=== PATIENT | female | born 1950 | race Caucasian/White ===

== ENCOUNTER → 2019-06-19 | Outpatient (CLI) | payer MEDICARE, OTHER ==
[2019-06-19 12:07] LABS: African American GFR (CKD) >90 (>60 ml/min/1.73 sqM); Blood Urea Nitrogen 18 mg/dL (7-17); Non-African American GFR(CKD) >90 (>60 ml/min/1.73 sqM)
--- NOTE | 2019-06-19 12:44 | CT ---
EXAMINATION TYPE: CT angio chest DATE OF EXAM: 06/19/2019 COMPARISON: Chest x-ray August 22, 2013 HISTORY: Dyspnea. CT DLP: 290 mGycm. Automated Exposure Control for Dose Reduction was Utilized. CONTRAST: CTA scan of the thorax is performed with IV Contrast, patient injected with 100 mL of Isovue 370, pul monary embolism protocol. MIP Images are created on CT scanner and reviewed. FINDINGS: LUNGS: There are small bilateral pleural fluid collections which do not completely layer dependently. There is additional fluid extending into the right lung minor fissure. There is bilateral moderate t o advanced emphysematous change most prominent involving the upper lobes. There is moderate bibasilar linear scarring and/or atelectasis. There is severe left greater than right biapical pleural/parench ymal scarring with anterior left apical honeycombing and volume loss. Residual cavitary lesion at thi s level is present. There is redemonstration of large calcified right upper lobe nodule or granuloma measuring 1.5 cm on axial image 33. Multiple additional calcifications or calcified nodules throughou t bilateral upper lungs remains present. There are calcified pleural plaques are present bilaterally. There are additional areas of pleural thickening bilaterally. No pneumothorax seen bilaterally. Left upper lobe medial bronchiectasis is present. MEDIASTINUM: There is satisfactory enhancement of the pulmonary artery and its branches, there is no CT evidence for pulmonary embolism. There are no greater than 1 cm hilar or mediastinal lymph nodes. No significant pericardial effusion is seen. Cardiomegaly is present. Enlarged bilateral pulmonary arteries is seen, CT findings suggesting underlying pulmonary hypertension. Ascending aorta measures up to 3.7 cm diameter coronal image 21. Thyroid gland is heterogeneous and upper limits of normal in size. OTHER: Patient has virtually no fat making evaluation suboptimal. There is the dextroconvex scoliosis centered mid thoracic spine. There is mild height loss involving the L1 vertebra. There is loss of n ormal thoracic curvature and sagittal images. IMPRESSION: 1. No CT evidence for acute pulmonary embolism. 2. Cardiomegaly with underlying pulmonary artery hypertension. Moderate to advanced underlying emphys ematous change with extensive chronic changes as detailed above. Possible prior asbestos exposure. Velazquez spected old granulomatous disease. Possible prior silicosis. Small bilateral pleural effusion or flui d collections which do not completely layer dependently. Left apical chronic scarring and cavitary le louise. Correlation with old outside CT would be beneficial.
== END | disposition home or self-care (01) ==
LOC: RADCTMAIN 11:34
PROVIDERS: ATTEND Family Medicine
DX: J43.9 Emphysema, unspecified (principal); I27.21 Secondary pulmonary arterial hypertension; J98.4 Other disorders of lung; R91.1 Solitary pulmonary nodule; I51.7 Cardiomegaly
CPT/HCPCS: 82565; 84520; 71275; 36415; Q9967

== ENCOUNTER 2023-12-23 16:40 | Inpatient (IN) | payer MEDICARE, OTHER ==
[2023-12-23 17:23] LABS: Glucose,Whole Blood 136 mg/dL (70-110)
[2023-12-23] MEDS: SODIUM CHLORIDE 0.9% 500 ML 500 ML IV STA (17:48)
[2023-12-23] MEDS: hydrALAZINE HCL 20 MG/ML 1 ML VIAL IVP STA (17:49)
[2023-12-23 18:01] LABS: Appearance,Urine Clear (Clear); Bilirubin,Urine Negative (Negative); Blood,Urine Negative (Negative); Color,Urine Colorless; Glucose,Urine (UA) 4+ (Negative); Ketones,Urine Negative (Negative); Leukocyte Esterase,Urine Negative (Negative); Nitrite,Urine Negative (Negative); PH, Urine 7.5 (5.0-8.0); Protein,Urine Trace (Negative); Specific Gravity,Urine 1.016 (1.001-1.035); Urobilinogen,Urine <2.0 mg/dL (<2.0)
[2023-12-23 18:10] LABS: Basophils # (A) 0.1 k/uL (0-0.2); Basophils % (A) 1 %; Eosinophils # (A) 0.1 k/uL (0-0.7); Eosinophils % (A) 1 %; HCT 46.1 % (34.0-46.0); Lymphocytes # (A) 1.4 k/uL (1.0-4.8); Lymphocytes % (A) 16 %; MCH 31.4 pg (25.0-35.0); MCHC 32.6 g/dL (31.0-37.0); MCV 96.3 fL (80.0-100.0); Mean Platelet Volume 8.4; Monocytes # (A) 0.8 k/uL (0-1.0); Monocytes % (A) 9 %; Neutrophils # (A) 6.4 k/uL (1.3-7.7); Neutrophils % (A) 71 %; Platelet Count 199 k/uL (150-450); RBC 4.78 m/uL (3.80-5.40)
[2023-12-23] MEDS: IPRATROPIUM-ALBUTEROL 3 ML NEB INHALATION STA (18:12)
--- NOTE | 2023-12-23 18:12 | ED ---
General Adult HPI - General Chief complaint: Recheck/Abnormal Lab/Rx Stated complaint: high blood pressure and blood sugar Time Seen by Provider: 12/23/23 16:55 Source: patient, RN notes reviewed, old records reviewed Mode of arrival: ambulatory Limitations: no limitations - History of Present Illness Initial comments: Patient is a 73-year-old female who presents emergency department complaining of high blood pressure, cough, elevated blood sugars. Patient is overall a poor historian. Says her blood sugars have been ranging anywhere from low 100s to mid 200s. Currently is 136 upon arrival. Blood pressures have been high for the last week with no symptoms. Has blood pressure levels with systolics in the 200s. Denies any change in recent medications but also is a poor historian regarding which medication she takes. Is a chronic smoker as well and is concerned she may have pneumonia. Follows up with Dr. Morales. States she has been compliant with all blood pressure medications. Presents for further evaluation at this time. - Related Data Home Medications Medication Instructions Recorded Confirmed Atorvastatin [Lipitor] 40 mg PO HS 12/23/23 12/23/23 Budesonide/Formoterol Fumarate 2 puff INHALATION RT-BID 12/23/23 12/23/23 [Symbicort 160-4.5 Mcg Inhaler] Dapagliflozin Propanediol [Farxiga] 5 mg PO DAILY 12/23/23 12/23/23 Empagliflozin [Jardiance] 10 mg PO DAILY 12/23/23 12/23/23 Escitalopram [Lexapro] 5 mg PO DAILY 12/23/23 12/23/23 Furosemide [Lasix] 40 mg PO BID 12/23/23 12/23/23 Gabapentin [Neurontin] 100 mg PO BID 12/23/23 12/23/23 INSULIN LISPRO (humaLOG) [humaLOG] 10 units SQ AC-TID PRN 12/23/23 12/23/23 Insulin Glargine [Lantus Vial] 20 unit SQ DAILY 12/23/23 12/23/23 Losartan [Cozaar] 50 mg PO DAILY 12/23/23 12/23/23 Midodrine [ProAmatine] 5 mg PO TID 12/23/23 12/23/23 Ondansetron [Zofran] 4 mg PO Q8HR PRN 12/23/23 12/23/23 Pantoprazole [Protonix] 40 mg PO DAILY 12/23/23 12/23/23 Spironolactone [Aldactone] 50 mg PO DAILY 12/23/23 12/23/23 carvediloL [Coreg] 6.25 mg PO BID 12/23/23 12/23/23 hydrALAZINE HCL [Apresoline] 25 mg PO BID 12/23/23 12/23/23 traZODone HCL [Desyrel] 50 mg PO HS 12/23/23 12/23/23 Allergies Allergy/AdvReac Type Severity Reaction Status Date / Time No Known Allergies Allergy Verified 12/23/23 19:27 Review of Systems ROS Statement: Those systems with pertinent positive or pertinent negative responses have been documented in the HPI. Review of Systems: CONST: Denies fever EYES: Denies blurry vision ENT: Denies nasal congestion C/V: Denies Chest pain RESP: Denies shortness of breath GI: Denies abdominal pain : Denies dysuria SKIN: Denies rash. MSK: Denies joint pain. NEURO: Denies headache ROS Other: All systems not noted in ROS Statement are negative. Past Medical History Past Medical History: Diabetes Mellitus, Hypertension History of Any Multi-Drug Resistant Organisms: None Reported Past Surgical History: No Surgical Hx Reported Past Psychological History: No Psychological Hx Reported Smoking Status: Current every day smoker Past Alcohol Use History: None Reported Past Drug Use History: None Reported General Exam - General Exam Comments Initial Comments: General: Appears in no acute distress. HEAD: Normal with no signs of head trauma. EYES: PERRLA, EOMI, conjunctiva normal, no discharge. ENT: Hearing grossly intact, normal oropharynx. RESPIRATORY: Clear breath sounds bilaterally. Mild end expiratory wheezing. No respiratory distress. C/V: Regular rate and rhythm. S1 and S2 auscultated, no edema, peripheral pulses 2+ and intact throughout ABD: Abd is soft, nontender, nondistended EXT: Normal range of motion, no obvious deformity SKIN: No rashes or lesions observed on exposed skin. NEURO: Alert and oriented x 4. Cranial nerves II-XII intact. No focal sensory o r strength deficits. Limitations: no limitations Course Vital Signs 12/23/23 12/23/23 12/23/23 16:44 18:00 18:12 Temperature 98.2 F Pulse Rate 84 84 Respiratory 20 Rate Blood Pressure 207/90 217/104 O2 Sat by Pulse 97 Oximetry 12/23/23 12/23/23 12/23/23 18:20 19:42 21:12 Temperature Pulse Rate 87 85 Respiratory 16 16 Rate Blood Pressure 204/88 O2 Sat by Pulse 90 L Oximetry 12/23/23 12/23/23 21:14 23:00 Temperature Pulse Rate 67 75 Respiratory 16 18 Rate Blood Pressure 178/101 189/86 O2 Sat by Pulse 99 97 Oximetry Medical Decision Making - Medical Decision Making Was pt. sent in by a medical professional or institution (, PA, [employer], urgent care, hospital, or retirement...) When possible be specific @ -No Did you speak to anyone other than the patient for history (EMS, parent, family, police, friend...)? What history was obtained from this source @ -No Did you review nursing and triage notes (agree or disagree)? Why? @ -I reviewed and agree with nursing and triage notes Were old charts reviewed (outside hosp., previous admission, EMS record, old EKG, old radiological studies, urgent care reports/EKG's, retirement records)? Report findings @ -No old charts were reviewed Differential Diagnosis (chest pain, altered mental status, abdominal pain women, abdominal pain men, vaginal bleeding, weakness, fever, dyspnea, syncope, heada carolyne, dizziness, GI bleed, back pain, seizure, CVA, palpatations, mental health, musculoskeletal)? @ -JOSE, pneumonia, viral syndrome, hypertension, hypertension urgency, hypertensive emergency.. This list is not all inclusive. EKG interpreted by me (3pts min.). @ -As above X-rays interpreted by me (1pt min.). @ -Chest x-ray shows left upper lobe pneumonia as well as mild bilateral pleural effusions. CT interpreted by me (1pt min.). @ -None done U/S interpreted by me (1pt. min.). @ -None done What testing was considered but not performed or refused? (CT, X-rays, U/S, labs)? Why? @ -None What meds were considered but not given or refused? Why? @ -None Did you discuss the management of the patient with other professionals (professionals i.e. , PA, [employer], lab, RT, psych nurse, aids social worker, shift supervisor film processing, teacher, chief talent officer, case assembler)? Give summary @ - I spoke with Dr. Morales who was in agreement the plan for admission. Was smoking cessation discussed for >3mins.? @ -No Was critical care preformed (if so, how long)? @ -No Were there social determinants of health that impacted care today? How? (Homelessness, low income, unemployed, alcoholism, drug addiction, transportat ion, low edu. Level, literacy, decrease access to med. care, penitentiary, rehab)? @ -No Was there de-escalation of care discussed even if they declined (Discuss DNR or withdrawal of care, Hospice)? DNR status @ -No What co-morbidities impacted this encounter? (DM, HTN, Smoking, COPD, CAD, Cancer, CVA, ARF, Chemo, Hep., AIDS, mental health diagnosis, sleep apnea, morbid obesity)? @ -None Was patient admitted / discharged? Hospital course, mention meds given and route, prescriptions, significant lab abnormalities, going to OR and other pertinent info. @ -Patient presents for hypertensive episode over the last few weeks as well as possible elevated blood sugars. Has been noticing a productive cough over the last week as well. Patient is currently hypertensive with systolics over 200. She will be given dose of IV hydralazine. She has no symptoms regarding the high blood pressure. Denies chest pain or headaches. Will provide her with a breathing treatment as she is a chronic tobacco user. Does use an inhaler at home. Will obtain screening EKG as well as viral swabs, chest x-ray. Patient was in agreement this plan. EKG showed no signs of acute ischemia.Chest x-ray concerning for left upper lobe pneumonia. Labs unremarkable. Viral swabs negative. Following hydralazine, minimal improvement in blood pressure. Patient given 10 mg IV push of labetalol which did improve her blood pressure to systolics 178/101. She remains asymptomatic otherwise. Patient restarted on her chronic 3 L nasal cannula from home. I discussed the results with the patient. She would like me to contact contact Dr. Morales as he did send her in for possible admission I believe this is reasonable. I spoke with Dr. Morales who was in agreement the plan for admission. We will restart patient's home antihypertensives and she will be started on IV antibiotics for pneumonia. He will evaluate the patient in the morning. Patient was in agreement this plan. Undiagnosed new problem with uncertain prognosis? @ -No Drug Therapy requiring intensive monitoring for toxicity (Heparin, Nitro, Insul in, Cardizem)? @ -No Were any procedures done? @ -No Diagnosis/symptom? @ -Asymptomatic hypertension, pneumonia in the setting of chronic hypoxic respiratory failure Acute, or Chronic, or Acute on Chronic? @ -Acute Uncomplicated (without systemic symptoms) or Complicated (systemic symptoms)? @ -Complicated Side effects of treatment? @ -None Exacerbation, Progression, or Severe Exacerbation] @ -No Poses a threat to life or bodily function? @ -Yes - Lab Data Result diagrams: 12/23/23 17:47 12/23/23 17:47 Lab Results 12/23/23 12/23/23 12/23/23 Range/Units 17:20 17:47 17:47 WBC 9.0 (3.8-10.6) k/uL RBC 4.78 (3.80-5.40) m/uL Hgb 15.0 (11.4-16.0) gm/dL Hct 46.1 H (34.0-46.0) % MCV 96.3 (80.0-100.0) fL MCH 31.4 (25.0-35.0) pg MCHC 32.6 (31.0-37.0) g/dL RDW 14.0 (11.5-15.5) % Plt Count 199 (150-450) k/uL MPV 8.4 Neutrophils % 71 % Lymphocytes % 16 % Monocytes % 9 % Eosinophils % 1 % Basophils % 1 % Neutrophils # 6.4 (1.3-7.7) k/uL Lymphocytes # 1.4 (1.0-4.8) k/uL Monocytes # 0.8 (0-1.0) k/uL Eosinophils # 0.1 (0-0.7) k/uL Basophils # 0.1 (0-0.2) k/uL Sodium (137-145) mmol/L Potassium (3.5-5.1) mmol/L Chloride (98-107) mmol/L Carbon Dioxide (22-30) mmol/L Anion Gap mmol/L BUN (7-17) mg/dL Creatinine (0.52-1.04) mg/dL Est GFR (CKD-EPI)AfAm (>60 ml/min/1.73 sqM) Est GFR (CKD-EPI)NonAf (>60 ml/min/1.73 sqM) Glucose (74-99) mg/dL POC Glucose (mg/dL) 136 H (70-110) mg/dL POC Glu Chemical Tank Worker ID Kalyn Parson Calcium (8.4-10.2) mg/dL Magnesium (1.6-2.3) mg/dL Total Bilirubin (0.2-1.3) mg/dL AST (14-36) U/L ALT (4-34) U/L Alkaline Phosphatase (38-126) U/L Total Protein (6.3-8.2) g/dL Albumin (3.5-5.0) g/dL Urine Color Colorless Urine Appearance Clear (Clear) Urine pH 7.5 (5.0-8.0) Ur Specific [place] 1.016 (1.001-1.035) Urine Protein Trace H (Negative) Urine Glucose (UA) 4+ H (Negative) Urine Ketones Negative (Negative) Urine Blood Negative (Negative) Urine Nitrite Negative (Negative) Urine Bilirubin Negative (Negative) Urine Urobilinogen <2.0 (<2.0) mg/dL Ur Leukocyte Esterase Negative (Negative) Influenza Type A (PCR) (Not Detectd) Influenza Type B (PCR) (Not Detectd) RSV (PCR) (Not Detectd) SARS-CoV-2 (PCR) (Not Detectd) 12/23/23 12/23/23 Range/Units 17:47 17:47 WBC (3.8-10.6) k/uL RBC (3.80-5.40) m/uL Hgb (11.4-16.0) gm/dL Hct (34.0-46.0) % MCV (80.0-100.0) fL MCH (25.0-35.0) pg MCHC (31.0-37.0) g/dL RDW (11.5-15.5) % Plt Count (150-450) k/uL MPV Neutrophils % % Lymphocytes % % Monocytes % % Eosinophils % % Basophils % % Neutrophils # (1.3-7.7) k/uL Lymphocytes # (1.0-4.8) k/uL Monocytes # (0-1.0) k/uL Eosinophils # (0-0.7) k/uL Basophils # (0-0.2) k/uL Sodium 141 (137-145) mmol/L Potassium 3.4 L (3.5-5.1) mmol/L Chloride 106 (98-107) mmol/L Carbon Dioxide 28 (22-30) mmol/L Anion Gap 7 mmol/L BUN 9 (7-17) mg/dL Creatinine 0.43 L (0.52-1.04) mg/dL Est GFR (CKD-EPI)AfAm >90 (>60 ml/min/1.73 sqM) Est GFR (CKD-EPI)NonAf >90 (>60 ml/min/1.73 sqM) Glucose 148 H (74-99) mg/dL POC Glucose (mg/dL) (70-110) mg/dL POC Glu Chemical Tank Worker ID Calcium 9.1 (8.4-10.2) mg/dL Magnesium 1.8 (1.6-2.3) mg/dL Total Bilirubin 1.1 (0.2-1.3) mg/dL AST 30 (14-36) U/L ALT 29 (4-34) U/L Alkaline Phosphatase 153 H (38-126) U/L Total Protein 6.6 (6.3-8.2) g/dL Albumin 4.0 (3.5-5.0) g/dL Urine Color Urine Appearance (Clear) Urine pH (5.0-8.0) Ur Specific [place] (1.001-1.035) Urine Protein (Negative) Urine Glucose (UA) (Negative) Urine Ketones (Negative) Urine Blood (Negative) Urine Nitrite (Negative) Urine Bilirubin (Negative) Urine Urobilinogen (<2.0) mg/dL Ur Leukocyte Esterase (Negative) Influenza Type A (PCR) Not Detected (Not Detectd) Influenza Type B (PCR) Not Detected (Not Detectd) RSV (PCR) Not Detected (Not Detectd) SARS-CoV-2 (PCR) Not Detected (Not Detectd) - EKG Data -: EKG Interpreted by Me EKG Comments: 12-lead Electrocardiogram Interpretation Note EKG was reviewed and interpreted by myself. 12-lead ECG performed at 1726 is int erpreted by me as revealing normal sinus rhythm at a rate of 82 beats per minute. [place] is normal. PA interval is 149 ms, QRS duration is 87 ms, QTc is 411 ms.. There were no ST or T wave abnormalities to suggest myocardial ischemia or injury. R wave progression across the precordium was satisfactory. By my interpretation this EKG is non-diagnostic for acute ischemia. Disposition Clinical Impression: Asymptomatic hypertension, Pneumonia Disposition: ADMITTED IP TO THIS HOSP Condition: Stable Time of Disposition: 19:42
[2023-12-23 18:31] LABS: ALT 29 U/L (4-34); AST 30 U/L (14-36); African American GFR (CKD) >90 (>60 ml/min/1.73 sqM); Alkaline Phosphatase 153 U/L (38-126); Blood Urea Nitrogen 9 mg/dL (7-17); Calcium 9.1 mg/dL (8.4-10.2); Carbon Dioxide 28 mmol/L (22-30); Chloride 106 mmol/L (98-107); Glucose 148 mg/dL (74-99); Magnesium 1.8 mg/dL (1.6-2.3); Non-African American GFR(CKD) >90 (>60 ml/min/1.73 sqM); Total Bilirubin 1.1 mg/dL (0.2-1.3); Total Protein 6.6 g/dL (6.3-8.2)
--- NOTE | 2023-12-23 18:49 | XR ---
EXAMINATION TYPE: XR chest 2V DATE OF EXAM: 12/23/2023 5:59 PM CLINICAL INDICATION:Female, 73 years old with history of difficulty breathing; COMPARISON: 08/22/2013 TECHNIQUE: XR chest 2V Frontal view of the chest. FINDINGS: Lungs/Pleura: Right upper lung pulmonary nodule measuring 14 mm. Left upper lung loculated pleural ef fusion suggested. Fissural pleural fluid. Bilateral pleural fluid in the bases. Bilateral upper lung calcified nodules and right basilar calcified nodule. No evidence for pneumothorax. Pulmonary vascularity: Unremarkable. Heart/mediastinum: Cardiomediastinal silhouette is unremarkable. Musculoskeletal: No acute osseous pathology. Scoliosis changes to the spine. Other findings: None IMPRESSION: New bilateral pleural effusions with pleural fusion/consolidation left lung apex. Previous the cavity area lesion in left lung apex. .
[2023-12-23 19:00] LABS: Anion Gap 7 mmol/L; Potassium 3.4 mmol/L (3.5-5.1); Sodium 141 mmol/L (137-145)
[2023-12-23] MEDS ORDERED: PNEUMONIA PROTOCOL UTILIZED 1 EACH MISC PO PRN (19:42)
[2023-12-23] MEDS: LABETALOL 5 MG/ML VIAL MDV IVP STA ×2 (20:25→20:37)
[2023-12-23] MEDS: FUROSEMIDE 40 MG TAB PO SCH (20:30)
[2023-12-23] MEDS: GABAPENTIN 100 MG CAP PO SCH (20:31)
[2023-12-23] MEDS: SYMBICORT 160-4.5 MCG INHALER INHALATION SCH (21:21)
[2023-12-23] MEDS: AZITHROMYCIN 500 MG in SODIUM CHLORIDE 0.9% 250 ML IVPB STA (21:31)
[2023-12-23] MEDS: hydrALAZINE HCL 25 MG TAB PO SCH (21:36)
[2023-12-23] MEDS: ATORVASTATIN 40 MG TAB PO SCH (21:36)
[2023-12-23] MEDS: carvediloL 6.25 MG TAB PO SCH (23:33)
[2023-12-24] MEDS: MIDODRINE 5 MG TAB PO SCH (07:22)
[2023-12-24] MEDS: LOSARTAN 50 MG TAB PO SCH (08:23)
[2023-12-24] MEDS: DAPAGLIFLOZIN PROPANEDIOL 5 MG TABLET PO SCH (08:23)
[2023-12-24] MEDS: ESCITALOPRAM 5 MG TAB PO SCH (08:23)
[2023-12-24] MEDS: SPIRONOLACTONE 25 MG TAB PO SCH (08:23)
[2023-12-24] MEDS: PANTOPRAZOLE 40 MG TABLET PO SCH (08:23)
[2023-12-24] MEDS ORDERED: NON FORMULARY DRUG (Empagliflozin [Jardiance] 10 MG Tablet) PO SCH (09:00)
--- NOTE | 2023-12-24 09:30 | XR ---
EXAMINATION TYPE: XR chest 1V portable DATE OF EXAM: 12/24/2023 Comparison: 12/23/2023 Clinical History: 73-year-old female pneumonia Findings: Right heart margin obscured by overlying spine with a dextroconvex scoliosis present. There is hyperi nflation. Interstitial densities and possible trace pleural effusions. Chronic calcifications in the bilateral upper lungs with biapical pleural-parenchymal scarring. Cavitary change with underlying mas slike opacity at the left apex measuring up to 5.6 cm. Suspect pseudotumor right midlung probably cor responding to fluid along the minor fissure . Stable parenchymal calcifications left mid lung. Impression: 1. COPD with evidence of prior granulomatous disease. 2. Given possible pseudotumor along the right minor fissure and possible trace effusions, consider mi ld CHF/fluid overload state. 3. 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 Pulmona ry medicine referral advised.
[2023-12-24] MEDS: amLODIPine 5 MG TAB PO SCH (12:56)
[2023-12-24 13:54] LABS: Appearance,Urine Clear (Clear); Bilirubin,Urine Negative (Negative); Blood,Urine Negative (Negative); Color,Urine Colorless; Glucose,Urine (UA) 4+ (Negative); Ketones,Urine Negative (Negative); Leukocyte Esterase,Urine Negative (Negative); Nitrite,Urine Negative (Negative); PH, Urine 5.5 (5.0-8.0); Protein,Urine Negative (Negative); Specific Gravity,Urine 1.028 (1.001-1.035); Urobilinogen,Urine <2.0 mg/dL (<2.0)
--- NOTE | 2023-12-24 13:54 | HP ---
HISTORY AND PHYSICAL HISTORY OF PRESENT ILLNESS: The patient is a 73-year-old white female, came with elevated hypertension 200/100, cough, elevated blood sugars, do not have a pneumonia. Blood pressures have been high 200s. Chronic smoker, started smoking again, concerned about pneumonia. States she has been compliant with her blood pressure pills. HOME MEDICATIONS: 1. Lipitor 40 daily. 2. Symbicort inhaler 2 puffs b.i.d. 3. Farxiga 5 mg daily. 4. Jardiance 10 mg daily. She does not take both of those, just 1 of them. 5. Lexapro 5 mg daily. 6. Lasix 40 b.i.d. 7. Neurontin 100 b.i.d. 8. Humalog 10 units a.c. t.i.d. 9. Lantus 20 units subcu daily. 10.ProAmatine 5 mg t.i.d., she has been holding that since her blood pressures have been good. 11.Cozaar 50 daily. 12.Protonix 40 daily. 13.Aldactone 50 daily. 14.Coreg 6.25 b.i.d. 15.Hydralazine 25 b.i.d. 16.Desyrel 50 at night. ALLERGIES: Negative. REVIEW OF SYSTEMS: A 14-point review of systems positive for cough, congestion, and headaches with elevated hypertension. PAST MEDICAL HISTORY: COPD, end-stage CAD, diabetes mellitus, hypertension. SOCIAL HISTORY: Current everyday smoker. PHYSICAL EXAMINATION: VITAL SIGNS: Blood pressure was 207/90 on admission, O2 97, pulse 80 to 84, respiratory rate 18 to 20, and temperature 98.2. HEENT: Normocephalic, atraumatic. GENERAL: Looks malnourished. LUNGS: Scattered wheeze and rhonchi. HEENT: Normocephalic, atraumatic. CARDIOVASCULAR: S1, S2. ABDOMEN: Soft, nontender. EXTREMITIES: No cyanosis, clubbing, or edema. NEUROLOGIC: Alert, oriented x3. IMPRESSION: Hypertension acceleration, COPD, probable community-acquired pneumonia, rule out UTI, insulin-dependent diabetes mellitus, hypokalemia, secondary polycythemia. Continue current treatments, Rocephin, azithromycin, blood pressure control. Get Cardiology, Pulmonary consult. Please see further orders. MMODL / IJN: [id number] /
[2023-12-24 14:52] LABS: Glucose,Whole Blood 364 mg/dL (70-110)
--- NOTE | 2023-12-24 17:06 | P.CNPUL ---
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 Patient has brittle diabetes mellitus with frequent admission into the hospital due to diabetes mellitus. she presented into the hospital with elevated blood sugar they are varying from 100-200 on arrival however it was 136 blood pressure was elevated systolic blood pressure 200 range other medical problems significant for dyslipidemia, COPD, brittle diabetes, hypertension hypertensive cardiovascular disease, chronic hypotension,on arrival she was afebrile with temperature 90.8, blood pressure 210/90 when up to 217/104 oxygen saturation 97% on 2 L nasal cannula dropped down to 90% room airher labs were significant for potassium of 3.4, CBC within normal limit BUN/creatinine within normal limit influenza A and B as well as RSV and covid has been negativechest x-ray significant for Bilateral pleural effusion with consolidation in the left lung apex previous cavitary lesionfollow-up chest x-ray revealed COPD with prior granulomatous( degrees, biapical pleural parenchymal scarring with left apical mycetomacurrently patient is on antihypertensive agent, also on broad-spectrum antibiotics with Zithromax as well as Rocephin she has been getting Lasix 40 mg daily and multiple antihypertensive agents. On specific questioning she denies any fever or chills, denies any hemoptysis denies any purulent sputum production Review of Systems All systems: negative Past Medical History Past Medical History: Diabetes Mellitus, Hypertension History of Any Multi-Drug Resistant Organisms: None Reported Past Surgical History: No Surgical Hx Reported Past Psychological History: No Psychological Hx Reported Smoking Status: Current every day smoker Past Alcohol Use History: None Reported Past Drug Use History: None Reported Medications and Allergies Home Medications Medication Instructions Recorded Confirmed Type Atorvastatin [Lipitor] 40 mg PO HS 12/23/23 12/23/23 History Budesonide/Formoterol Fumarate 2 puff INHALATION RT-BID 12/23/23 12/23/23 History [Symbicort 160-4.5 Mcg Inhaler] Dapagliflozin Propanediol [Farxiga] 5 mg PO DAILY 12/23/23 12/23/23 History Empagliflozin [Jardiance] 10 mg PO DAILY 12/23/23 12/23/23 History Escitalopram [Lexapro] 5 mg PO DAILY 12/23/23 12/23/23 History Furosemide [Lasix] 40 mg PO BID 12/23/23 12/23/23 History Gabapentin [Neurontin] 100 mg PO BID 12/23/23 12/23/23 History INSULIN LISPRO (humaLOG) [humaLOG] 10 units SQ AC-TID PRN 12/23/23 12/23/23 History Insulin Glargine [Lantus Vial] 20 unit SQ DAILY 12/23/23 12/23/23 History Losartan [Cozaar] 50 mg PO DAILY 12/23/23 12/23/23 History Midodrine [ProAmatine] 5 mg PO TID 12/23/23 12/23/23 History Ondansetron [Zofran] 4 mg PO Q8HR PRN 12/23/23 12/23/23 History Pantoprazole [Protonix] 40 mg PO DAILY 12/23/23 12/23/23 History Spironolactone [Aldactone] 50 mg PO DAILY 12/23/23 12/23/23 History carvediloL [Coreg] 6.25 mg PO BID 12/23/23 12/23/23 History hydrALAZINE HCL [Apresoline] 25 mg PO BID 12/23/23 12/23/23 History traZODone HCL [Desyrel] 50 mg PO HS 12/23/23 12/23/23 History Allergies Allergy/AdvReac Type Severity Reaction Status Date / Time No Known Allergies Allergy Verified 12/23/23 19:27 Physical Exam Vitals: Vital Signs Temp Pulse Resp BP Pulse Ox 12/24/23 12:53 71 18 207/99 100 12/24/23 08:57 98 12/24/23 08:30 98.1 F 66 18 169/90 95 12/24/23 06:13 70 18 172/82 98 12/23/23 23:00 75 18 189/86 97 12/23/23 21:14 67 16 178/101 99 12/23/23 21:12 16 90 L 12/23/23 19:42 85 16 204/88 12/23/23 18:20 87 12/23/23 18:12 84 12/23/23 18:00 217/104 - Constitutional General appearance: disheveled, thin - EENT Eyes: EOMI, PERRLA ENT: normal oropharynx Ears: bilateral: normal - Neck Carotids: bilateral: upstroke normal Thyroid: bilateral: normal size - Respiratory Respiratory: bilateral: CTA - Cardiovascular Rhythm: regular Heart sounds: normal: S1, S2 Abnormal Heart Sounds: systolic murmur - Gastrointestinal General gastrointestinal: soft - Integumentary Integumentary: decreased turgor - Neurologic Neurologic: CNII-XII intact - Musculoskeletal Musculoskeletal: gait normal, generalized weakness, strength equal bilaterally - Psychiatric Psychiatric: A&O x's 3, appropriate affect, intact judgment & insight Results - Laboratory Findings CBC and BMP: 12/23/23 17:47 12/23/23 17:47 Abnormal lab findings: Abnormal Labs 12/23/23 12/23/23 12/23/23 17:20 17:47 17:47 Hct 46.1 H Potassium Creatinine Glucose POC Glucose (mg/dL) 136 H Alkaline Phosphatase Urine Protein Trace H Urine Glucose (UA) 4+ H 12/23/23 12/24/23 12/24/23 17:47 13:29 14:51 Hct Potassium 3.4 L Creatinine 0.43 L Glucose 148 H POC Glucose (mg/dL) 364 H Alkaline Phosphatase 153 H Urine Protein Urine Glucose (UA) 4+ H - Diagnostic Findings Chest x-ray: report reviewed, image reviewed (finding as noted above) Assessment and Plan Assessment: bilateral upper lobe fibrosis and pleural cavitary lesion with possible left- sided apical mycetoma Associated pneumonia cannot be excluded, mixed bacterial gram-negative Hypertensive urgency Brittle diabetes Dyslipidemia Plan: Continue antibiotics Continue bronchodilators Obtained computed tomography scan of the chest without contrast Further recommendations pending plan of care as per current clinical response of the patient Time with Patient: Greater than 30
[2023-12-24] MEDS ORDERED: DEXTROSE 50% SYRINGE 50 ML IVP PRN ×2 (17:45)
[2023-12-24] MEDS: AZITHROMYCIN 500 MG TAB PO SCH (20:38)
[2023-12-24 20:45] LABS: Glucose,Whole Blood 274 mg/dL (70-110)
[2023-12-24] MEDS: INSULIN ASPART (NovoLOG) 100 UNIT/ML VIAL SQ SCH (21:31)
--- NOTE | 2023-12-24 21:48 | CT ---
EXAMINATION TYPE: CT chest wo con DATE OF EXAM: 12/24/2023 COMPARISON: 06/19/2019 HISTORY: 73-year-old female left upper lobe Lung Mass. TECHNIQUE: Contiguous axial scanning of the chest without IV contrast. Coronal/sagittal reconstructio ns performed. CT DLP: 172.6mGycm. Automatic exposure control utilized for a dose reduction. FINDINGS: The heart is borderline in size without pericardial effusion. LAD and RCA coronary calcifications are present. Mild atherosclerotic arch calcifications with conventional arch vessel branching anatomy. No obvious thoracic lymphadenopathy seen though assessment limited due to lack of contrast. There is a trace right pleural effusion present. A few scattered calcified pleural plaques. Moderate emphysematous change. Chronic pleural-parenchymal scarring with irregular thickening and associated c alcifications at the bilateral upper lungs. An oval 2.8 cm area shows low density along the minor fis sure, likely pseudotumor, intrafissural fluid, decreased from 2019. Abnormal opacity at the left apex has increased. Cavity with internal irregular nodule seen previousl y. Extensive modeled soft tissue linear density is now present here measuring up to 4.8 cm versus 3.8 cm, previously. 5 mm posterior left lower lobe pulmonary nodule, axial image 35 is unchanged. Additional nodularity m easuring up to 7 mm periphery of the right lower lobe is unchanged. However, there is new patchy opac ity at the right base. Worsening aeration now with possible collapse of the inferior lingula and associated parenchymal calc ifications. Visualized upper abdomen shows cholecystectomy clips. Lack of contrast and paucity of intra-abdominal fat limits the evaluation. S-shaped scoliosis. Mild superior endplate deformity L1 is unchanged. Mild superior endplate deformit y T4 has a chronic appearance though new from 10/13/2022. IMPRESSION: 1. COPD with moderate emphysema and extensive parenchymal scarring with an upper lung predominance. C onsider pneumoconiosis, sarcoidosis, or sequela of prior fungal/mycobacterial infection. 2. Worsening opacity at the left apex now measuring up to 4.8 cm versus 3.8 cm, previously. Correlate for underlying fungal or mycobacterial infection. We suspect cavitary change with mycetoma on the dafne martino's 2019 exam. There could be progression of the atypical infection. Follow-up to exclude underly ing neoplasm. 3. Worsening aeration now with suspected complete collapse of the lingula. 4. Patchy airspace disease in the right base. Correlate for pneumonia. Trace right pleural effusion.
[2023-12-25 07:15] LABS: Glucose,Whole Blood 162 mg/dL (70-110)
[2023-12-25] MEDS: ACETAMINOPHEN TAB 325 MG TAB PO PRN (10:51)
[2023-12-25 11:00] LABS: ALT 26 U/L (8-44); AST 20 U/L (13-35); Albumin 3.9 g/dL (3.8-4.9); Albumin/Globulin Ratio 1.86 Ratio (1.60-3.17); Alkaline Phosphatase 172 U/L (41-126); BUN/Creat Ratio 14.71 Ratio (12.00-20.00); Blood Urea Nitrogen 10.3 mg/dL (9.0-27.0); Calcium 8.8 mg/dL (8.7-10.3); Carbon Dioxide 33.3 mmol/L (21.6-31.8); Chloride 103 mmol/L (96-109); Globulin 2.1 g/dL (1.6-3.3); Glucose 201 mg/dL (70-110); Potassium 3.6 mmol/L (3.5-5.5); Sodium 144 mmol/L (135-145); Total Bilirubin 0.7 mg/dL (0.3-1.2)
[2023-12-25 11:14] LABS: Basophils # (A) 0.06 X 10*3/uL (0.00-0.10); Basophils % (A) 0.7 %; Eosinophils # (A) 0.15 X 10*3/uL (0.04-0.35); Eosinophils % (A) 1.7 %; HCT 43.9 % (37.2-46.3); HGB 13.8 g/dL (12.0-15.0); Lymphocytes # (A) 1.54 X 10*3/uL (0.90-5.00); Lymphocytes % (A) 17.6 %; MCH 30.7 pg (27.0-32.0); MCHC 31.4 g/dL (32.0-37.0); MCV 97.6 FL (80.0-97.0); Mean Platelet Volume 10.3 FL (9.5-12.2); Monocytes # (A) 1.03 X 10*3/uL (0.20-1.00); Monocytes % (A) 11.8 %; NRBC Per 100 WBC 0 X 10*3/uL (0.00-0.01); Neutrophils # (A) 5.93 X 10*3/uL (1.80-7.70); Platelet Count 202 X 10*3/uL (140-440); RDW 13.2 % (11.5-14.5); WBC 8.73 X 10*3/uL (4.50-10.00)
[2023-12-25 11:57] VITALS: BMI 15.4
[2023-12-25 12:10] LABS: Glucose,Whole Blood 144 mg/dL (70-110)
[2023-12-25] MEDS: LOSARTAN 50 MG TAB PO STA (13:31)
--- NOTE | 2023-12-25 13:44 | P.CRDCN ---
History of Present Illness History of present illness: HISTORY OF PRESENTING ILLNESS This is a pleasant 73-year-old with past medical history significant for tobacco abuse, lung nodules as well as left sided cavitary nodule suspicious of asperg illoma versus healed TB, hypertension, COPD, diabetes mellitus type 2. She states she has not been overly symptomatic and her family made her come in to the hospital. When the main concerns was severely increased blood pressure in the 200s over 100 range. She denies any change in her chronic shortness breath. Denies any actual chest pain or pressure or headache. She denies missing any of her medications and states she is normally compliant. She had a CT performed which did show concern of increasing size of her left-sided mass however no other significant findings. REVIEW OF SYSTEMS At the time of my exam: CONSTITUTIONAL: Denies fever or chills. CARDIOVASCULAR: Denies chest pain, +shortness of breath, orthopnea, PND or palpitations. RESPIRATORY: Denies cough. GASTROINTESTINAL: Denies abdominal pain, diarrhea, constipation, nausea or vomiting. MUSCULOSKELETAL: Denies myalgias. NEUROLOGIC: Denies numbness, tingling or weakness. ENDOCRINE: Denies fatigue, weight change, polydipsia or polyurina. GENITOURINARY: Denies burning, hematuria or urgency with micturation. HEMATOLOGIC: Denies history of anemia or bleeding. PHYSICAL EXAMINATION Vital signs reviewed. CONSTITUTIONAL: No apparent distress. HEENT: Head is normocephalic. Pupils are equal, round. Sclerae anicteric. Mucous membranes of the mouth are moist. No JVD. No carotid bruit. CHEST EXAMINATION: Lungs are clear to auscultation. No chest wall tenderness is noted on palpation or with deep breathing. HEART EXAMINATION: Regular rate and rhythm. S1, S2 heard. No murmurs, gallops or rub. ABDOMEN: Soft, nontender. Positive bowel sounds. EXTREMITIES: 2+ peripheral pulses, no lower extremity edema and no calf tender ness. NEUROLOGIC EXAMINATION: Patient is awake, alert and oriented x3. 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 Blood pressure has been out of control and we will increase losartan from 50-100 and amlodipine was also added. Monitor response. Further recommendations to follow. Past Medical History Past Medical History: COPD, Diabetes Mellitus, Hypertension History of Any Multi-Drug Resistant Organisms: None Reported Past Surgical History: Appendectomy, Section, Orthopedic Surgery Past Psychological History: No Psychological Hx Reported Smoking Status: Current every day smoker Past Alcohol Use History: None Reported Past Drug Use History: None Reported Medications and Allergies Home Medications Medication Instructions Recorded Confirmed Type Atorvastatin [Lipitor] 40 mg PO HS 12/23/23 12/23/23 History Budesonide/Formoterol Fumarate 2 puff INHALATION RT-BID 12/23/23 12/23/23 History [Symbicort 160-4.5 Mcg Inhaler] Dapagliflozin Propanediol [Farxiga] 5 mg PO DAILY 12/23/23 12/23/23 History Empagliflozin [Jardiance] 10 mg PO DAILY 12/23/23 12/23/23 History Escitalopram [Lexapro] 5 mg PO DAILY 12/23/23 12/23/23 History Furosemide [Lasix] 40 mg PO BID 12/23/23 12/23/23 History Gabapentin [Neurontin] 100 mg PO BID 12/23/23 12/23/23 History INSULIN LISPRO (humaLOG) [humaLOG] 10 units SQ AC-TID PRN 12/23/23 12/23/23 History Insulin Glargine [Lantus Vial] 20 unit SQ DAILY 12/23/23 12/23/23 History Losartan [Cozaar] 50 mg PO DAILY 12/23/23 12/23/23 History Midodrine [ProAmatine] 5 mg PO TID 12/23/23 12/23/23 History Ondansetron [Zofran] 4 mg PO Q8HR PRN 12/23/23 12/23/23 History Pantoprazole [Protonix] 40 mg PO DAILY 12/23/23 12/23/23 History Spironolactone [Aldactone] 50 mg PO DAILY 12/23/23 12/23/23 History carvediloL [Coreg] 6.25 mg PO BID 12/23/23 12/23/23 History hydrALAZINE HCL [Apresoline] 25 mg PO BID 12/23/23 12/23/23 History traZODone HCL [Desyrel] 50 mg PO HS 12/23/23 12/23/23 History Allergies Allergy/AdvReac Type Severity Reaction Status Date / Time No Known Allergies Allergy Verified 12/23/23 19:27 Physical Exam Vitals: Vital Signs Temp Pulse Pulse Resp BP BP Pulse Ox 12/25/23 12:06 97.9 F 56 L 16 160/69 99 12/25/23 08:53 99 12/25/23 06:57 98.6 F 66 15 179/78 98 12/25/23 02:00 98.4 F 72 16 169/71 99 12/24/23 23:10 98.5 F 71 16 175/68 98 12/24/23 22:14 73 18 171/85 99 12/24/23 20:31 98.4 F 60 18 189/87 100 12/24/23 17:16 58 L 16 210/86 95 12/24/23 17:00 64 18 203/93 100 Intake and Output 12/24/23 12/25/23 12/25/23 22:59 06:59 14:59 Intake Total 480 Balance 480 Intake: Oral 480 Other: Voiding Method Bedside Commode # Voids 3 Weight 40.823 kg 40.823 kg Results 12/25/23 06:04 12/25/23 06:04 Cardiac Enzymes 12/25/23 Range/Units 06:04 AST 20 (13-35) U/L CBC 12/25/23 Range/Units 06:04 WBC 8.73 (4.50-10.00) X 10*3/uL RBC 4.50 (4.10-5.20) X 10*6/uL Hgb 13.8 (12.0-15.0) g/dL Hct 43.9 (37.2-46.3) % Plt Count 202 (140-440) X 10*3/uL Comprehensive Metabolic Panel 12/25/23 Range/Units 06:04 Sodium 144 (135-145) mmol/L Potassium 3.6 (3.5-5.5) mmol/L Chloride 103 (96-109) mmol/L Carbon Dioxide 33.3 H (21.6-31.8) mmol/L BUN 10.3 (9.0-27.0) mg/dL Creatinine 0.7 (0.6-1.5) mg/dL Glucose 201 H (70-110) mg/dL Calcium 8.8 (8.7-10.3) mg/dL AST 20 (13-35) U/L ALT 26 (8-44) U/L Alkaline Phosphatase 172 H (41-126) U/L Total Protein 6.0 L (6.2-8.2) g/dL Albumin 3.9 (3.8-4.9) g/dL Current Medications Generic Name Dose Route Start Last Admin Trade Name Freq PRN Reason Stop Dose Admin Acetaminophen 500 mg 12/25/23 12:21 Acetaminophen Tab 500 Mg Tab PO Q6HR PRN Fever and/ or Pain Amlodipine Besylate 5 mg 12/24/23 12:45 12/25/23 08:15 Amlodipine 5 Mg Tab PO 5 mg DAILY DENNISE Administration Atorvastatin Calcium 40 mg 12/23/23 21:00 12/24/23 20:38 Atorvastatin 40 Mg Tab PO 40 mg HS DENNISE Administration Azithromycin 500 mg 12/24/23 21:00 12/24/23 20:38 Azithromycin 500 Mg Tab PO 12/25/23 21:01 500 mg HS DENNISE Administration Protocol Budesonide/Formoterol Fumarate 2 puff 12/23/23 20:00 12/25/23 08:49 Symbicort 160-4.5 Mcg Inhaler INHALATION 2 puff RT-BID DENNISE Administration Carvedilol 6.25 mg 12/23/23 21:00 12/25/23 08:15 Carvedilol 6.25 Mg Tab PO 6.25 mg BID-W/MEALS DENNISE Administration Dapagliflozin 5 mg 12/24/23 09:00 12/25/23 08:15 Dapagliflozin Propanediol 5 Mg Tablet PO 5 mg DAILY DENNISE Administration Dextrose/Water 25 ml 12/24/23 17:45 Dextrose 50% Syringe 50 Ml IVP PER PROTOCOL PRN Hypoglycemia Protocol Dextrose/Water 50 ml 12/24/23 17:45 Dextrose 50% Syringe 50 Ml IVP PER PROTOCOL PRN Hypoglycemia Protocol Escitalopram Oxalate 5 mg 12/24/23 09:00 12/25/23 09:00 Escitalopram 5 Mg Tab PO 5 mg DAILY DENNISE Administration Furosemide 40 mg 12/23/23 21:00 12/25/23 08:15 Furosemide 40 Mg Tab PO 40 mg BID@0900,1600 DENNISE Administration Gabapentin 100 mg 12/23/23 21:00 12/25/23 08:15 Gabapentin 100 Mg Cap PO 100 mg BID DENNISE Administration Hydralazine HCl 25 mg 12/23/23 21:00 12/25/23 08:15 Hydralazine Hcl 25 Mg Tab PO 25 mg BID DENNISE Administration Ceftriaxone Sodium 2 gm/ 50 mls @ 100 mls/hr 12/24/23 21:00 12/24/23 20:40 Sodium Chloride IVPB 12/27/23 21:29 100 mls/hr Q24H DENNISE Administration Protocol Insulin Aspart 0 unit 12/24/23 21:00 12/25/23 12:19 Insulin Aspart (Novolog) 100 Unit/Ml Vial SQ Not Given ACHS DENNISE Protocol Losartan Potassium 100 mg 12/26/23 09:00 Losartan 50 Mg Tab PO DAILY DENNISE Miscellaneous Information 1 each 12/23/23 19:42 Pneumonia Protocol Utilized 1 Each Misc PO ONCE PRN Per Protocol Pantoprazole Sodium 40 mg 12/24/23 09:00 12/25/23 08:15 Pantoprazole 40 Mg Tablet PO 40 mg DAILY DENNISE Administration Spironolactone 50 mg 12/24/23 09:00 12/25/23 08:15 Spironolactone 25 Mg Tab PO 50 mg DAILY DENINSE Administration Intake and Output 12/24/23 12/25/23 12/25/23 22:59 06:59 14:59 Intake Total 480 Balance 480 Intake: Oral 480 Other: Voiding Method Bedside Commode # Voids 3 Weight 40.823 kg 40.823 kg Patient Weight 12/26/23 06:59 Weight 40.823 kg 12/25/23 06:04 12/25/23 06:04
--- NOTE | 2023-12-25 14:13 | PN ---
PROGRESS NOTE SUBJECTIVE: Blood pressure is still high, wait for Cardiology recommendation. She is on broad- spectrum antibiotics for pneumonia. She will consult with Dr. Hernandez. OBJECTIVE: VITAL SIGNS: Blood pressure is still high in 150s to 160s to 170s, O2 is 99 on 2 L, temperature 98.7, and pulse is 56. CARDIOVASCULAR: S1, S2. LUNGS: Transmitted upper sounds. GI: Soft. HEMATOLOGY: Negative for Homans. ASSESSMENT: Pneumonia, lung nodules, community-acquired pneumonia, COPD, pulmonary hypertension. Continue current treatment. Await for Infectious Disease recommendations. Blood pressure recommendation per Cardiology. Please see further orders. Sugars are improving. MMODL / IJN: [id number] /
--- NOTE | 2023-12-25 16:37 | P.PN ---
Subjective Progress Note Date: 12/25/23 Principal diagnosis: bilateral upper lobe fibrosis and pleural cavitary lesion with possible left- sided apical mycetoma Associated pneumonia likely, mixed bacterial gram-negative involving left lingula lobe Hypertensive urgency Brittle diabetes Dyslipidemia 12/25/2003, patient seen eval examined during the rounds labs reviewed medications reviewed computed tomography scan of the chest reviewed as welllingular lobe pneumonia identified, in addition to changes as noted in dictated above options discussed with the patient about bronchoscopy she declined 73-year-old female with history of remote smoking extensively, patient is well- known for bilateral upper lobe nodules with left-sided cavitary nodules suspicious of aspergilloma patient has been extensively worked up over here as well as [facility] as a biopsy and closed the diagnosis was achieved 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 Patient has brittle diabetes mellitus with frequent admission into the hospital due to diabetes mellitus. she presented into the hospital with elevated blood sugar they are varying from 100-200 on arrival however it was 136 blood pressure was elevated systolic blood pressure 200 range other medical problems significant for dyslipidemia, COPD, brittle diabetes, hypertension hypertensive cardiovascular disease, chronic hypotension,on arrival she was afebrile with temperature 90.8, blood pressure 210/90 when up to 217/104 oxygen saturation 97% on 2 L nasal cannula dropped down to 90% room airher labs were significant for potassium of 3.4, CBC within normal limit BUN/creatinine within normal limit influenza A and B as well as RSV and covid has been negativechest x-ray significant for Bilateral pleural effusion with consolidation in the left lung apex previous cavitary lesionfollow-up chest x-ray revealed COPD with prior granulomatous( degrees, biapical pleural parenchymal scarring with left apical my cetomacurrently patient is on antihypertensive agent, also on broad-spectrum antibiotics with Zithromax as well as Rocephin she has been getting Lasix 40 mg daily and multiple antihypertensive agents. On specific questioning she denies any fever or chills, denies any hemoptysis denies any purulent sputum production Objective - Vital Signs Vital signs: Vital Signs Temp 97.9 F 12/25/23 12:06 Pulse 56 L 12/25/23 12:06 Resp 16 12/25/23 12:06 BP 160/69 12/25/23 12:06 Pulse Ox 99 12/25/23 12:06 FiO2 Intake & Output 12/24/23 12/25/23 12/25/23 18:59 06:59 18:59 Intake Total 720 Balance 720 Weight 40.823 kg 40.823 kg Intake: Oral 720 Other: Voiding Method Bedside Commode # Voids 3 - Exam - Constitutional General appearance: disheveled, thin - EENT Eyes: EOMI, PERRLA ENT: normal oropharynx Ears: bilateral: normal - Neck Carotids: bilateral: upstroke normal Thyroid: bilateral: normal size - Respiratory Respiratory: bilateral: CTA - Cardiovascular Rhythm: regular Heart sounds: normal: S1, S2 Abnormal Heart Sounds: systolic murmur - Gastrointestinal General gastrointestinal: soft - Integumentary Integumentary: decreased turgor - Neurologic Neurologic: CNII-XII intact - Musculoskeletal Musculoskeletal: gait normal, generalized weakness, strength equal bilaterally - Psychiatric Psychiatric: A&O x's 3, appropriate affect, intact judgment & insight - Labs CBC & Chem 7: 12/25/23 06:04 12/25/23 06:04 Labs: Abnormal Lab Results - Last 24 Hours (Table) 12/24/23 12/25/23 12/25/23 Range/Units 20:34 06:04 06:04 MCV 97.6 H (80.0-97.0) FL MCHC 31.4 L (32.0-37.0) g/dL Monocytes # 1.03 H (0.20-1.00) X 10*3/uL Carbon Dioxide (21.6-31.8) mmol/L Glucose (70-110) mg/dL POC Glucose (mg/dL) 274 H (70-110) mg/dL Hemoglobin A1c 9.6 H (<=6.0) % Alkaline Phosphatase (41-126) U/L Total Protein (6.2-8.2) g/dL 12/25/23 12/25/23 12/25/23 Range/Units 06:04 07:13 12:08 MCV (80.0-97.0) FL MCHC (32.0-37.0) g/dL Monocytes # (0.20-1.00) X 10*3/uL Carbon Dioxide 33.3 H (21.6-31.8) mmol/L Glucose 201 H (70-110) mg/dL POC Glucose (mg/dL) 162 H 144 H (70-110) mg/dL Hemoglobin A1c (<=6.0) % Alkaline Phosphatase 172 H (41-126) U/L Total Protein 6.0 L (6.2-8.2) g/dL Microbiology - Last 24 Hours (Table) 12/23/23 20:00 Blood Culture - Preliminary Blood 12/23/23 20:15 Blood Culture - Preliminary Blood Assessment and Plan Assessment: bilateral upper lobe fibrosis and pleural cavitary lesion with possible left- sided apical mycetoma Associated pneumonia likely, mixed bacterial gram-negative involving left lingula lobe Hypertensive urgency Brittle diabetes Dyslipidemia Plan: Continue antibiotics Continue bronchodilators continue antihypertensive agent blood pressure better under control reviewed computed tomography scan of the chest without contrast Further recommendations pending plan of care as per current clinical response of the patient Time with Patient: Greater than 30
[2023-12-25 17:05] LABS: Glucose,Whole Blood 288 mg/dL (70-110)
[2023-12-25 19:41] LABS: Glucose,Whole Blood 396 mg/dL (70-110)
[2023-12-25] MEDS: ACETAMINOPHEN TAB 500 MG TAB PO PRN (22:02)
[2023-12-26 07:12] LABS: Glucose,Whole Blood 118 mg/dL (70-110)
--- NOTE | 2023-12-26 07:22 | P.CONS ---
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 patient presenting to [facility] 2 days ago for evaluation of high blood pressure with cough and elevated blood sugar patient symptom has been going on for the last few days before presentation to the hospital patient denies high-grade fever or chills denies having any URI symptoms patient did have a cough mild to moderate intensity occasional sputum production denies any hemoptysis no bloody chest pain no nausea no vomiting no choking on the food no abdominal pain vomiting diarrhea on presentation to the hospital patient was afebrile patient was not tachycardic or hypotensive mildly hypoxic and is on supplemental oxygen patient did have a white count of 8.73 creatinine is normal electrolytes are normal no enzymes normal urine has been negative influenza RSV COVID testing was negative patient did have a chest x-ray COPD with evidence of prior millimeters disease known by vehicle pleural parenchymal scarring and 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 patient subsequently did have a CT of the chest COPD with moderate emphysema extensive parenchymal scarring left upper lobe worsening opacity at the left apex and possible progression of atypical infection mostly radiation complete collapse of the lingula and PT history of disease in the right base patient has been treated with the Rocephin and Zithromax infectious was consulted today regarding pneumonia Review of Systems Positive point and negatives has been mentioned in the HPI, complete review of systems was performed and all other systems are negative Past Medical History Past Medical History: COPD, Diabetes Mellitus, Hypertension History of Any Multi-Drug Resistant Organisms: None Reported Past Surgical History: Appendectomy, Section, Orthopedic Surgery Past Psychological History: No Psychological Hx Reported Smoking Status: Current every day smoker Past Alcohol Use History: None Reported Past Drug Use History: None Reported Medications and Allergies Home Medications Medication Instructions Recorded Confirmed Type Atorvastatin [Lipitor] 40 mg PO HS 12/23/23 12/23/23 History Budesonide/Formoterol Fumarate 2 puff INHALATION RT-BID 12/23/23 12/23/23 History [Symbicort 160-4.5 Mcg Inhaler] Dapagliflozin Propanediol [Farxiga] 5 mg PO DAILY 12/23/23 12/23/23 History Escitalopram [Lexapro] 5 mg PO DAILY 12/23/23 12/23/23 History Furosemide [Lasix] 40 mg PO BID 12/23/23 12/23/23 History Gabapentin [Neurontin] 100 mg PO BID 12/23/23 12/23/23 History INSULIN LISPRO (humaLOG) [humaLOG] 10 units SQ AC-TID PRN 12/23/23 12/23/23 History Insulin Glargine [Lantus Vial] 20 unit SQ DAILY 12/23/23 12/23/23 History Pantoprazole [Protonix] 40 mg PO DAILY 12/23/23 12/23/23 History Spironolactone [Aldactone] 50 mg PO DAILY 12/23/23 12/23/23 History carvediloL [Coreg] 6.25 mg PO BID 12/23/23 12/23/23 History hydrALAZINE HCL [Apresoline] 25 mg PO BID 12/23/23 12/23/23 History Acetaminophen Tab [Tylenol] 500 mg PO Q6HR PRN tab 12/26/23 Rx Losartan [Cozaar] 100 mg PO DAILY 90 Days #90 tab 12/26/23 Rx amLODIPine [Norvasc] 5 mg PO DAILY 90 Days #90 tab 12/26/23 Rx Allergies Allergy/AdvReac Type Severity Reaction Status Date / Time No Known Allergies Allergy Verified 12/23/23 19:27 Physical Exam Vitals: Vital Signs Temp Pulse Pulse Resp BP BP Pulse Ox 12/25/23 12:06 97.9 F 56 L 16 160/69 99 12/25/23 08:53 99 12/25/23 06:57 98.6 F 66 15 179/78 98 12/25/23 02:00 98.4 F 72 16 169/71 99 12/24/23 23:10 98.5 F 71 16 175/68 98 12/24/23 22:14 73 18 171/85 99 12/24/23 20:31 98.4 F 60 18 189/87 100 12/24/23 17:16 58 L 16 210/86 95 12/24/23 17:00 64 18 203/93 100 Intake and Output 12/24/23 12/25/2312/24/24 22:59 06:59 14:59 Intake Total 480 Balance 480 Intake: Oral 480 Other: Voiding Method Bedside Commode # Voids 3 Weight 40.823 kg 40.823 kg GENERAL DESCRIPTION: Elderly female lying in bed, no distress. No tachypnea or accessory muscle of respiration use. HEENT: Shows Pallor , no scleral icterus. Oral mucous membrane is dry. No pharyngeal erythema or thrush NECK: Trachea central, no thyromegaly. LUNGS: Unlabored breathing. Decreased intensity of breath sounds. No wheeze or crackle. HEART: S1, S2, regular rate and rhythm. No loud murmur ABDOMEN: Soft, no tenderness , guarding or rigidity, no organomegaly EXTREMITIES: No edema of feet. SKIN: No rash, no masses palpable. NEUROLOGICAL: The patient is awake, alert, oriented x3, mood and affect normal. Results CBC & Chem 7: 12/25/23 06:04 12/25/23 06:04 Labs: Abnormal Lab Results - Last 24 Hours (Table) 12/24/23 12/24/23 12/24/23 Range/Units 13:29 14:51 20:34 MCV (80.0-97.0) FL MCHC (32.0-37.0) g/dL Monocytes # (0.20-1.00) X 10*3/uL Carbon Dioxide (21.6-31.8) mmol/L Glucose (70-110) mg/dL POC Glucose (mg/dL) 364 H 274 H (70-110) mg/dL Hemoglobin A1c (<=6.0) % Alkaline Phosphatase (41-126) U/L Total Protein (6.2-8.2) g/dL Urine Glucose (UA) 4+ H (Negative) 12/25/23 12/25/23 12/25/23 Range/Units 06:04 06:04 06:04 MCV 97.6 H (80.0-97.0) FL MCHC 31.4 L (32.0-37.0) g/dL Monocytes # 1.03 H (0.20-1.00) X 10*3/uL Carbon Dioxide 33.3 H (21.6-31.8) mmol/L Glucose 201 H (70-110) mg/dL POC Glucose (mg/dL) (70-110) mg/dL Hemoglobin A1c 9.6 H (<=6.0) % Alkaline Phosphatase 172 H (41-126) U/L Total Protein 6.0 L (6.2-8.2) g/dL Urine Glucose (UA) (Negative) 12/25/23 12/25/23 Range/Units 07:13 12:08 MCV (80.0-97.0) FL MCHC (32.0-37.0) g/dL Monocytes # (0.20-1.00) X 10*3/uL Carbon Dioxide (21.6-31.8) mmol/L Glucose (70-110) mg/dL POC Glucose (mg/dL) 162 H 144 H (70-110) mg/dL Hemoglobin A1c (<=6.0) % Alkaline Phosphatase (41-126) U/L Total Protein (6.2-8.2) g/dL Urine Glucose (UA) (Negative) Microbiology - Last 24 Hours (Table) 12/23/23 20:00 Blood Culture - Preliminary Blood 12/23/23 20:15 Blood Culture - Preliminary Blood Assessment and Plan (1) Pneumonia Current Visit: Yes Status: Acute Code(s): J18.9 - PNEUMONIA, UNSPECIFIED ORGANISM SNOMED Code(s): 234756343 Plan: 1patient presented hospital with symptoms of elevated blood pressure and sugar as well as cough noticed to have extensive finding on her CT of the chest 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 and apparently patient has been previously evaluated with bronchoscopy at [place] and evidence of any malignancy or infection however progression of disease as described on the current CT is slightly concerning and may benefit from a repeat bronchoscopy and biopsy to rule out possible MARIE infection clinically not behaving as reactivation TB 2-we will try to obtain sputum for Gram stain and culture check CRP procalcitonin sed rate as well as sputum AFB primarily looking for MARIE 3-continue empiric Rocephin Zithromax while waiting for the workup to be completed We will follow on clinical condition and cultures to further adjust medication if needed Thank you for this consultation we will follow the patient along with you Dictation was produced using [employer] dictation software. please excuse any grammatical, word or spelling errors. Time with Patient: Greater than 30
[2023-12-26 07:42] VITALS: RESP 16
[2023-12-26] MEDS: LOSARTAN 50 MG TAB PO SCH (08:09)
[2023-12-26 12:02] LABS: Glucose,Whole Blood 491 mg/dL (70-110)
[2023-12-26 12:02] LABS: Glucose,Whole Blood 554 mg/dL (70-110)
--- NOTE | 2023-12-26 12:37 | P.PN ---
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 On today's evaluation that is 12/26/2023, the patient continues to be afebrile, the patient is on 2 L of oxygen and breathing comfortably, the Pt denies having any chest pain or any worsening cough and no sputum production, the patient denies having any abdominal pain no vomiting or any diarrhea, mention feeling better. No labs obtained today patient did have a procalcitonin of 0.04 CRP is less than 0.30 sed rate is 18 Objective - Vital Signs Vital signs: Vital Signs Temp 97.6 F 12/26/23 07:09 Pulse 62 12/26/23 07:09 Resp 16 12/26/23 07:09 BP 160/89 12/26/23 07:09 Pulse Ox 98 12/26/23 07:09 FiO2 Intake & Output 12/25/23 12/26/23 12/26/23 18:59 06:59 18:59 Intake Total 2340 1080 Balance 2340 1080 Weight 40.823 kg Intake: Oral 2340 1080 Other: Voiding Method Toilet # Voids 1 4 - Exam GENERAL DESCRIPTION: An elderly female lying in bed in no distress RESPIRATORY SYSTEM: Unlabored breathing , decreased breath sounds at bases HEART: S1 S2 regular rate and rhythm , ABDOMEN: Soft , no tenderness EXTREMITIES: No edema feet - Labs CBC & Chem 7: 12/25/23 06:04 12/25/23 06:04 Labs: Abnormal Lab Results - Last 24 Hours (Table) 12/25/23 12/25/23 12/26/23 Range/Units 17:04 19:32 07:11 POC Glucose (mg/dL) 288 H 396 H 118 H (70-110) mg/dL 12/26/23 12/26/23 Range/Units 11:59 12:00 POC Glucose (mg/dL) 554 H* 491 H (70-110) mg/dL Microbiology - Last 24 Hours (Table) 12/23/23 20:00 Blood Culture - Preliminary Blood 12/23/23 20:15 Blood Culture - Preliminary Blood Assessment and Plan (1) Pneumonia Current Visit: Yes Status: Acute Code(s): J18.9 - PNEUMONIA, UNSPECIFIED ORGANISM SNOMED Code(s): 167821315 Plan: 1patient presented hospital with symptoms of elevated blood pressure and sugar as well as cough noticed to have extensive finding on her CT of the chest 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 please excuse any grammatical, word or spelling errors. Time with Patient: Less than 30
--- NOTE | 2023-12-26 12:50 | P.PN ---
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 She states she has not been overly symptomatic and her family made her come in to the hospital. When the main concerns was severely increased blood pressure in the 200s over 100 range. She denies any change in her chronic shortness breath. Denies any actual chest pain or pressure or headache. She denies missing any of her medications and states she is normally compliant. She had a CT performed which did show concern of increasing size of her left-sided mass however no other significant findings. 12/26/2023 Patient examined this morning at the bedside. Patient currently denies chest pain or pressure. She denies shortness of breath. She denies dizziness or lightheadedness. She reports having a mild headache this morning. Vital signs are stable. Blood pressure is significantly improved. PHYSICAL EXAM: VITAL SIGNS: Reviewed. GENERAL: Well-developed in no acute distress. NECK: Supple. No JVD or thyromegaly LUNGS: Respirations even and unlabored. Lungs essentially clear to auscultation bilaterally. HEART: Regular rate and rhythm. S1 and S2 heard. EXTREMITIES: Normal range of motion. No clubbing or cyanosis. Peripheral pulses intact. No lower extremity edema ASSESSMENT: Hypertensive urgency Acute on chronic respiratory failure COPD Former nicotine dependence Diabetes mellitus type 2 Lung mass, aspergillosis, old TB PLAN: Continue current cardiac medications Patient may be discharged home today from a cardiac standpoint Patient instructed to keep a log of her blood pressures at home and was instructed to notify the cardiology office if her blood pressures are running lower than 120s or higher than 160s. Nurse practitioner note has been reviewed by physician. Signing provider agrees with the documented findings, assessment, and plan of care documented by CLOTH DYER as a scribe. Objective - Vital Signs Vital signs: Vital Signs Temp 97.6 F 12/26/23 07:09 Pulse 62 12/26/23 07:09 Resp 16 12/26/23 07:09 BP 160/89 12/26/23 07:09 Pulse Ox 98 12/26/23 07:09 FiO2 Intake & Output 12/25/23 12/26/23 12/26/23 18:59 06:59 18:59 Intake Total 2340 1080 Balance 2340 6767 Weight 40.823 kg Intake: Oral 2340 1080 Other: Voiding Method Toilet # Voids 1 4 - Labs CBC & Chem 7: 12/25/23 06:04 12/25/23 06:04 Labs: Abnormal Lab Results - Last 24 Hours (Table) 12/25/23 12/25/23 12/26/23 Range/Units 17:04 19:32 07:11 POC Glucose (mg/dL) 288 H 396 H 118 H (70-110) mg/dL 12/26/23 12/26/23 Range/Units 11:59 12:00 POC Glucose (mg/dL) 554 H* 491 H (70-110) mg/dL Microbiology - Last 24 Hours (Table) 12/23/23 20:00 Blood Culture - Preliminary Blood 12/23/23 20:15 Blood Culture - Preliminary Blood
[2023-12-26 13:14] VITALS: BP 164/70; PULSE 59; TEMP 98
[2023-12-26] MEDS: AMOXIC-POT CLAV 875-125MG 1 EACH TAB PO SCH (13:35)
[2023-12-26] MEDS: INSULIN REGULAR 100 UNIT/ML VIAL (IV) SQ ONE (13:35)
[2023-12-26 14:20] LABS: Glucose,Whole Blood 478 mg/dL (70-110)
== END 2023-12-26 15:38 | disposition home or self-care (01) | DRG 177 ==
LOC: EC 16:40 → 5NMEDONC 19:42
PROVIDERS: ADMIT Family Medicine; ATTEND Family Medicine
DX: J15.69 Pneumonia due to other Gram-negative bacteria (principal); J96.21 Acute and chronic respiratory failure with hypoxia; B44.9 Aspergillosis, unspecified; B47.9 Mycetoma, unspecified; I27.20 Pulmonary hypertension, unspecified; J84.10 Pulmonary fibrosis, unspecified; Z79.4 Long term (current) use of insulin; E11.65 Type 2 diabetes mellitus with hyperglycemia; J43.9 Emphysema, unspecified; I95.89 Other hypotension; I11.9 Hypertensive heart disease without heart failure; I16.0 Hypertensive urgency; D75.1 Secondary polycythemia; E87.6 Hypokalemia; F17.210 Nicotine dependence, cigarettes, uncomplicated; E78.5 Hyperlipidemia, unspecified; I25.10 Atherosclerotic heart disease of native coronary artery without angina pectoris; R91.8 Other nonspecific abnormal finding of lung field; Z11.52 Encounter for screening for COVID-19; Z79.891 Long term (current) use of opiate analgesic; Z79.51 Long term (current) use of inhaled steroids; Z79.84 Long term (current) use of oral hypoglycemic drugs; Z79.899 Other long term (current) drug therapy; Z86.11 Personal history of tuberculosis
CPT/HCPCS: 36415; 71045; 71046; 71250; 80053; 81003; 83036; 83735; 84145; 85025; 85652; 86140; 87040; 87449; 87636; 93005; 94640; 94760; 96365; 96366; 96367; 96375; 99285